=== PATIENT | male | born 1955 | race Caucasian/White ===

== ENCOUNTER 2022-04-09 22:52 | Emergency (ER) | payer OTHER ==
[2022-04-09 23:02] VITALS: BMI 23.6
[2022-04-09] MEDS ORDERED: LORazepam 2 MG/ML SDV VIAL IVPUSH ONE (23:57)
[2022-04-09] MEDS ORDERED: LACTATED RINGERS SOLUTION 1000 ML INFUS.BAG IV ONE (23:57)
[2022-04-09] MEDS ORDERED: THIAMINE HCL 100 MG TABLET (FP) PO ONE (23:58)
[2022-04-09] MEDS ORDERED: FOLIC ACID 1 MG TABLET (FP) PO ONE (23:58)
[2022-04-10] MEDS ORDERED: FOLIC ACID 1 MG TABLET (FP) ONE (00:26)
[2022-04-10] MEDS ORDERED: THIAMINE HCL 100 MG TABLET (FP) ONE (00:27)
[2022-04-10 00:42] LABS: BASO % 0.6 % (0-2.0); HEMATOCRIT 32.9 % (35.4-49); HEMOGLOBIN 11.5 GM/dL (11.7-16.9); LYMPH % 14.9 % (8-40); MCH 33.2 pg (25.7-33.7); MCHC 34.9 g/dl (32.0-35.9); MEAN CELL VOLUME 95.2 fl (80-96); MONO % 11.3 % (3.8-10.2); NEUT % 72.2 % (42.8-82.8); PLATELET COUNT 114 10^3/uL (134-434); RBC 3.46 M/mm3 (4.00-5.60); RDW 14.7 % (11.9-15.9); WHITE BLOOD COUNT 6.2 K/mm3 (4.0-10.0)
[2022-04-10 00:45] LABS: VENOUS BASE EXCESS -6.4 mmol/L (-2-2); VENOUS O2 SATURATION 94.6 % (70-80); VENOUS PCO2 40.8 mmHg (38-52); VENOUS PH 7.3 (7.310-7.410)
[2022-04-10 01:00] LABS: CHLORIDE 92 mmol/L (98-107); SODIUM 130 mmol/L (136-145)
[2022-04-10 01:02] LABS: CALCIUM 8.8 mg/dL (8.5-10.1)
[2022-04-10 01:03] LABS: ANION GAP 15 MMOL/L (8-16); BLOOD UREA NITROGEN 11.6 mg/dL (7-18); CO2 23 mmol/L (21-32); GLUCOSE,RANDOM 93 mg/dL (74-106); LIPASE 274 U/L (73-393); MAGNESIUM 1.7 mg/dL (1.8-2.4)
[2022-04-10 01:05] LABS: CREATININE 1.2 mg/dL (0.55-1.3); PHOSPHOROUS 2.8 mg/dL (2.5-4.9); SGPT/ALT 629 U/L (13-61)
[2022-04-10 01:07] LABS: TOT PROT 8.5 g/dl (6.4-8.2)
[2022-04-10 01:08] LABS: ALK PHOS 273 U/L (45-117)
[2022-04-10 01:11] LABS: INR 1.48 (0.83-1.09); PROTHROMBIN TIME (PATIENT) 17.1 SEC (9.7-13.0)
[2022-04-10 01:13] LABS: ACTIVATED PTT 35.9 SECONDS (25.2-36.5)
[2022-04-10 01:14] LABS: SGOT/AST 1000 U/L (15-37)
[2022-04-10 03:39] VITALS: BP 142/80; PULSE 79
[2022-04-10 04:10] VITALS: TEMP 98
== END 2022-04-10 04:10 | disposition short-term general hospital (02) ==
LOC: JER 22:52
PROC: 3E033NZ Introduction of Analgesics, Hypnotics, Sedatives into Peripheral Vein, Percutaneous Approach (ICD-10-PCS; principal; 2022-04-09)
DX: K70.10 Alcoholic hepatitis without ascites (principal)
CPT/HCPCS: 0241U-QW; 36415; 71045-TC-FY; 76705-TC; 80053; 80307; 82248; 82803; 82962; 83690; 83735; 84100; 85025; 85610; 85730; 93005; 93010; 99285-25